=== PATIENT | male | born 1955 | race Caucasian/White ===

== ENCOUNTER 2020-08-20 19:09 | Emergency (ER) | payer BC, OTHER ==
[~2020-08-20 19:09] MED LIST: AMLODIPINE BESY10 MG PO; ECOTRIN81 MG PO; ELIQUIS2.5 MG PO; FENOFIBRATE160 MG PO; LIPITOR40 MG PO; PERCOCET 10-321 EACH PO
[2020-08-21 01:47] LABS: HEMOGLOBIN 12.1 gm/dl (14.0-17.5); RED BLOOD COUNT 4.66 M/UL (4.20-5.50); WHITE BLOOD COUNT 7.2 K/UL (4.5-11.0)
[2020-08-21 01:58] LABS: BUN/CREATININE RATIO 20 (0-10)
[2020-08-21] MEDS ORDERED: DECADRON6 MG PO (03:45)
[2020-08-21] MEDS ORDERED: DOXYCYCLINE HY100 MG PO (03:45)
== END 2020-08-21 06:15 | disposition home or self-care (01) ==
LOC: ER1 19:09
PROVIDERS: Emergency Medicine
DX: U07.1 COVID-19 (principal); J12.82 Pneumonia due to coronavirus disease 2019; I10 Essential (primary) hypertension; E78.5 Hyperlipidemia, unspecified; F17.210 Nicotine dependence, cigarettes, uncomplicated
CPT/HCPCS: 36600; 71045; 80053; 82550; 82553; 82803; 83874; 84484; 85025; 93005; 99285; M0239

== ENCOUNTER → 2020-09-05 | Outpatient (CLI) | payer BC, OTHER ==
[~2020-09-05] MED LIST changes: +DECADRON6 MG PO; +DOXYCYCLINE HY100 MG PO
== END ==
LOC: KOH-I 11:41
DX: R91.8 Other nonspecific abnormal finding of lung field (principal); B97.21 SARS-associated coronavirus as the cause of diseases classified elsewhere
CPT/HCPCS: 71046

== ENCOUNTER → 2020-12-01 | Outpatient (CLI) | payer BC, OTHER | LOC: KOH-I 14:36 | DX: J18.9 Pneumonia, unspecified organism (principal) | CPT/HCPCS: 71046 ==

== ENCOUNTER → 2021-08-19 | Outpatient (CLI) | payer BC | LOC: KOH-I 10:12 | DX: J84.9 Interstitial pulmonary disease, unspecified (principal) | CPT/HCPCS: 71250 ==

== ENCOUNTER → 2021-10-06 | Outpatient (CLI) | payer BC | LOC: KOH-I 13:29 | DX: N28.9 Disorder of kidney and ureter, unspecified (principal); N28.1 Cyst of kidney, acquired | CPT/HCPCS: 76775 ==

== ENCOUNTER → 2022-01-04 | Outpatient (CLI) | payer BC | LOC: HEART 5 14:50 | DX: R93.89 Abnormal findings on diagnostic imaging of other specified body structures (principal) | CPT/HCPCS: 94010; 94729 ==

== ENCOUNTER → 2022-01-12 | Outpatient (CLI) | payer MEDICARE | LOC: ECHO 12:13 → CT 13:30 | DX: R06.00 Dyspnea, unspecified (principal); R93.89 Abnormal findings on diagnostic imaging of other specified body structures | CPT/HCPCS: ECHO; 71250; 93306 ==